=== PATIENT | female | born 1960 | race Caucasian/White ===

== ENCOUNTER 2018-01-19 16:16 | Inpatient (IN) | payer MEDICARE, MEDICAID ==
[~2018-01-19] VITALS: Ht 170.2 cm; Wt 121.8 kg
[~2018-01-19 16:16] MED LIST: ABILIFY; LEVOTHYROID; VENL-67
[2018-01-19] MEDS ORDERED: BUPR100 PO (16:34)
[2018-01-19] MEDS ORDERED: MELO-107 PO (16:34)
[2018-01-19] MEDS ORDERED: LEVO25TA9 PO (16:34)
[2018-01-19] MEDS ORDERED: BUSP10TA23 PO (16:34)
[2018-01-19] MEDS ORDERED: BUPR1FIL3 SL (16:34)
[2018-01-19] MEDS ORDERED: KCL10IV PO (16:34)
[2018-01-19] MEDS ORDERED: MET750 PO (16:34)
[2018-01-19] MEDS ORDERED: OXYB5 PO (16:34)
[2018-01-19] MEDS ORDERED: HYDR50CA10 PO (16:34)
[2018-01-19] MEDS ORDERED: ATOR20TA86 PO (16:34)
[2018-01-19] MEDS ORDERED: LEVO200 PO (16:34)
[2018-01-19] MEDS ORDERED: VENL-67 PO (16:34)
[2018-01-19 17:04] LABS: BASOPHILS % (AUTO) 0.1 % (0.0-2.0); EOSINOPHILS % (AUTO) 0 % (1.0-6.0); HEMATOCRIT 38.6 % (36-46); HEMOGLOBIN 12.8 g/dL (12.0-16.0); LYMPHOCYTES # (AUTO) 1.6 K/uL (1.0-4.8); LYMPHOCYTES % (AUTO) 25.4 % (22.0-44.0); MEAN CORPUSCULAR HEMOGLOBIN 29.1 pg (26.0-34.0); MEAN CORPUSCULAR HGB CONC 33.3 G/dL (31.0-37.0); MEAN CORPUSCULAR VOLUME 88 fL (80-100); MONOCYTES # (AUTO) 0.4 K/uL (0.1-1.0); MONOCYTES % (AUTO) 7.1 % (2.0-9.0); NEUTROPHILS # (AUTO) 4.2 K/uL (1.8-7.7); NEUTROPHILS % (AUTO) 67.4 % (40.0-70.0); PLATELET COUNT (AUTO) 305 K/uL (150-450); RED BLOOD CELL COUNT(AUTO) 4.41 MIL/uL (4.00-5.20); RED CELL DISTRIBUTION WIDTH 13.8 % (11.5-14.5)
[2018-01-19 17:13] LABS: ANION GAP 10 mmol/L (8-16); CALCIUM, TOTAL 9.1 mg/dL (8.8-10.5); CARBON DIOXIDE 27 mmol/L (22-29); CHLORIDE 101 mmol/L (98-107); GLOMERULAR FILTR. RATE CALC 57 mL/min (>60); GLUCOSE,RANDOM 142 mg/dL (70-110); SODIUM SERUM 138 mmol/L (136-145); UREA NITROGEN, BLOOD 22 mg/dL (7-18)
[2018-01-19 17:19] LABS: ALANINE AMINOTRANSFERASE 21 U/L (12-78); ALBUMIN 3.4 g/dL (3.4-5.0); ALKALINE PHOSPHATASE 157 U/L (46-116); ASPARTATE AMINOTRANSFERASE 20 U/L (15-37); BILIRUBIN,TOTAL 0.5 mg/dL (0.1-1.0)
[2018-01-19 18:21] LABS: AMPHET/METH SCREEN,URINE NEGATIVE (NEGATIVE); BARBITURATE SCREEN, URINE NEGATIVE (NEGATIVE); BENZODIAZEPINES SCREEN,URINE NEGATIVE (NEGATIVE); CANNABINOID SCREEN,URINE NEGATIVE (NEGATIVE); COCAINE SCREEN,URINE NEGATIVE (NEGATIVE); METHADONE SCREEN, URINE NEGATIVE (NEGATIVE); OPIATE SCREEN,URINE NEGATIVE (NEGATIVE)
[2018-01-19 18:22] LABS: PHENCYCLIDINE SCREEN,URINE NEGATIVE (NEGATIVE)
[2018-01-19] MEDS: LORazepam 2 MG TABLET PO PRN (18:35)
[2018-01-19 21:17] VITALS: BP 150/70
[2018-01-19] MEDS ORDERED: BENZOCAINE/MENTHOL LOZENGE MM PRN (21:30)
[2018-01-19] MEDS ORDERED: MAG HYDROX/AL HYDROX/SIMETH ES 30 ML SUSPENSION UDCUP PO PRN (21:30)
[2018-01-19] MEDS ORDERED: LOPERAMIDE HCL 2 MG CAPSULE PO PRN (21:30)
[2018-01-19] MEDS ORDERED: CloNIDine HCL 0.1 MG TABLET PO PRN (21:30)
[2018-01-19] MEDS ORDERED: BACITRACIN 28.4 GM OINTMENT TP PRN (21:30)
[2018-01-19] MEDS ORDERED: ACETAMINOPHEN 325 MG TABLET PO PRN (21:30)
[2018-01-19] MEDS ORDERED: ALBUTEROL SULFATE HFA 90 MCG/PUFF 8 GM INHALER IH PRN (21:30)
[2018-01-19] MEDS ORDERED: IBUPROFEN 600 MG TABLET PO PRN (21:30)
[2018-01-19] MEDS ORDERED: PETROLATUM,WHITE 71 GM JELLY TP PRN (21:30)
[2018-01-19] MEDS ORDERED: ONDANSETRON HCL 4 MG TABLET PO PRN (21:30)
[2018-01-19] MEDS ORDERED: MAGNESIUM HYDROXIDE SUSPENSION 30 ML UDCUP PO PRN (21:30)
[2018-01-20 03:00] VITALS: BP 128/64
[2018-01-20] MEDS: LORazepam 2 MG TABLET PO PRN ×3 (03:29→19:00)
[2018-01-20 06:22] LABS: FREE T4 (FREE THYROXINE) 1.32 ng/dL (0.76-1.46); THYROID STIMULATING HORMONE 1.26 uIU/mL (0.36-3.74)
[2018-01-20] MEDS: LEVOTHYROXINE SODIUM 200 MCG TABLET PO SCH (06:29)
[2018-01-20] MEDS: MELOXICAM 7.5 MG TABLET PO SCH (06:30)
[2018-01-20 08:30] VITALS: BP 152/84
[2018-01-20] MEDS: OXYBUTYNIN CHLORIDE 5 MG TABLET PO SCH ×2 (09:00→16:51)
[2018-01-20] MEDS: ATORVASTATIN CALCIUM 20 MG TABLET PO SCH (09:00)
[2018-01-20] MEDS: DOCUSATE SODIUM 100 MG CAPSULE PO SCH (09:00)
[2018-01-20] MEDS: METHOCARBAMOL 750 MG TABLET PO SCH (09:00)
[2018-01-20] MEDS: OMEPRAZOLE 20 MG CAPSULE PO SCH (09:00)
[2018-01-20 21:57] VITALS: BP 146/68
[2018-01-21 03:15] VITALS: BP 123/69
[2018-01-21] MEDS: LORazepam 2 MG TABLET PO PRN ×3 (03:35→20:34)
[2018-01-21 06:53] LABS: HEMOGLOBIN A1C 5.7 % (4.5-6.2)
[2018-01-21] MEDS: MELOXICAM 7.5 MG TABLET PO SCH (07:03)
[2018-01-21] MEDS: LEVOTHYROXINE SODIUM 200 MCG TABLET PO SCH (07:03)
[2018-01-21 07:06] LABS: THYROID STIMULATING HORMONE 1.05 uIU/mL (0.36-3.74)
[2018-01-21 08:49] VITALS: BP 144/82
[2018-01-21] MEDS: ATORVASTATIN CALCIUM 20 MG TABLET PO SCH (09:00)
[2018-01-21] MEDS: DOCUSATE SODIUM 100 MG CAPSULE PO SCH (09:00)
[2018-01-21] MEDS: OXYBUTYNIN CHLORIDE 5 MG TABLET PO SCH ×3 (09:00→17:36)
[2018-01-21] MEDS: OMEPRAZOLE 20 MG CAPSULE PO SCH (09:00)
[2018-01-21] MEDS: METHOCARBAMOL 750 MG TABLET PO SCH (09:35)
[2018-01-21] MEDS: HydrOXYzine PAMOATE 50 MG CAPSULE PO SCH (17:37)
[2018-01-21 20:27] VITALS: BP 140/80
[2018-01-21] MEDS: ZOLPIDEM TARTRATE 10 MG TABLET PO PRN (20:55)
[2018-01-22 02:45] VITALS: BP 152/86
[2018-01-22] MEDS: LEVOTHYROXINE SODIUM 200 MCG TABLET PO SCH (06:59)
[2018-01-22] MEDS: MELOXICAM 7.5 MG TABLET PO SCH (07:08)
[2018-01-22] MEDS: ARIPiprazole 15 MG TABLET PO SCH (08:44)
[2018-01-22] MEDS: BusPIRone HCL 10 MG TABLET PO SCH (08:45)
[2018-01-22] MEDS: METHOCARBAMOL 750 MG TABLET PO SCH (08:45)
[2018-01-22] MEDS: OXYBUTYNIN CHLORIDE 5 MG TABLET PO SCH ×2 (08:45→16:42)
[2018-01-22] MEDS: VENLAFAXINE HCL 150 MG ER CAPSULE PO SCH (08:45)
[2018-01-22] MEDS: ATORVASTATIN CALCIUM 20 MG TABLET PO SCH (08:45)
[2018-01-22] MEDS: BuPROPion HCL XL 150 MG ER TABLET PO SCH (08:46)
[2018-01-22] MEDS: DOCUSATE SODIUM 100 MG CAPSULE PO SCH (09:00)
[2018-01-22] MEDS: NICOTINE 21 MG/24 HOUR PATCH TD SCH (09:00)
[2018-01-22] MEDS: OMEPRAZOLE 20 MG CAPSULE PO SCH (09:00)
[2018-01-22] MEDS: HALOPERIDOL 5 MG TABLET PO PRN ×3 (09:03→21:57)
[2018-01-22] MEDS: HydrOXYzine PAMOATE 50 MG CAPSULE PO SCH ×2 (09:03→16:42)
[2018-01-22 09:57] VITALS: BP 138/75
[2018-01-22 17:07] VITALS: BP 106/53
[2018-01-22 17:50] VITALS: BP 127/66
[2018-01-22 18:53] VITALS: BP 120/62
[2018-01-23 05:53] VITALS: BP 142/83
[2018-01-23] MEDS: HALOPERIDOL 5 MG TABLET PO PRN (06:57)
[2018-01-23] MEDS: LEVOTHYROXINE SODIUM 200 MCG TABLET PO SCH (07:05)
[2018-01-23] MEDS: MELOXICAM 7.5 MG TABLET PO SCH (07:11)
[2018-01-23 07:30] VITALS: BP 145/79
[2018-01-23 08:30] VITALS: BP 141/80
[2018-01-23] MEDS: OMEPRAZOLE 20 MG CAPSULE PO SCH (09:00)
[2018-01-23] MEDS: NICOTINE 21 MG/24 HOUR PATCH TD SCH (09:00)
[2018-01-23] MEDS: DOCUSATE SODIUM 100 MG CAPSULE PO SCH (09:09)
[2018-01-23] MEDS: VENLAFAXINE HCL 150 MG ER CAPSULE PO SCH (09:09)
[2018-01-23] MEDS: BuPROPion HCL XL 150 MG ER TABLET PO SCH (09:09)
[2018-01-23] MEDS: OXYBUTYNIN CHLORIDE 5 MG TABLET PO SCH ×2 (09:09→16:56)
[2018-01-23] MEDS: ATORVASTATIN CALCIUM 20 MG TABLET PO SCH (09:09)
[2018-01-23] MEDS: BusPIRone HCL 10 MG TABLET PO SCH (09:09)
[2018-01-23] MEDS: METHOCARBAMOL 750 MG TABLET PO SCH (09:10)
[2018-01-23] MEDS: ARIPiprazole 15 MG TABLET PO SCH (09:10)
[2018-01-23] MEDS: HydrOXYzine PAMOATE 50 MG CAPSULE PO SCH ×2 (09:15→16:57)
[2018-01-23] MEDS: LORazepam 2 MG TABLET PO PRN (19:44)
[2018-01-23 21:47] VITALS: BP 110/61
[2018-01-24 02:30] VITALS: BP 151/88
[2018-01-24] MEDS: LEVOTHYROXINE SODIUM 200 MCG TABLET PO SCH (07:05)
[2018-01-24] MEDS: MELOXICAM 7.5 MG TABLET PO SCH (07:20)
[2018-01-24] MEDS: ATORVASTATIN CALCIUM 20 MG TABLET PO SCH (08:17)
[2018-01-24] MEDS: OMEPRAZOLE 20 MG CAPSULE PO SCH (08:17)
[2018-01-24] MEDS: HydrOXYzine PAMOATE 50 MG CAPSULE PO SCH ×2 (08:17→16:17)
[2018-01-24] MEDS: OXYBUTYNIN CHLORIDE 5 MG TABLET PO SCH ×2 (08:17→16:16)
[2018-01-24] MEDS: METHOCARBAMOL 750 MG TABLET PO SCH (08:17)
[2018-01-24] MEDS: VENLAFAXINE HCL 150 MG ER CAPSULE PO SCH (08:17)
[2018-01-24] MEDS: DOCUSATE SODIUM 100 MG CAPSULE PO SCH (08:17)
[2018-01-24] MEDS: BuPROPion HCL XL 150 MG ER TABLET PO SCH (08:17)
[2018-01-24] MEDS: ARIPiprazole 15 MG TABLET PO SCH (08:17)
[2018-01-24] MEDS: BusPIRone HCL 10 MG TABLET PO SCH (08:17)
[2018-01-24] MEDS: NICOTINE 21 MG/24 HOUR PATCH TD SCH (08:19)
[2018-01-24 09:04] VITALS: BP 136/70
[2018-01-24] MEDS: LORazepam 2 MG TABLET PO PRN ×2 (09:48→19:45)
[2018-01-24 17:33] VITALS: BP 149/78
[2018-01-25 00:05] VITALS: BP 151/86
[2018-01-25] MEDS: LEVOTHYROXINE SODIUM 200 MCG TABLET PO SCH (07:01)
[2018-01-25] MEDS: MELOXICAM 7.5 MG TABLET PO SCH (07:19)
[2018-01-25] MEDS: ATORVASTATIN CALCIUM 20 MG TABLET PO SCH (08:10)
[2018-01-25] MEDS: OXYBUTYNIN CHLORIDE 5 MG TABLET PO SCH ×2 (08:10→16:16)
[2018-01-25] MEDS: VENLAFAXINE HCL 150 MG ER CAPSULE PO SCH (08:10)
[2018-01-25] MEDS: BuPROPion HCL XL 150 MG ER TABLET PO SCH (08:10)
[2018-01-25] MEDS: NICOTINE 21 MG/24 HOUR PATCH TD SCH (08:10)
[2018-01-25] MEDS: DOCUSATE SODIUM 100 MG CAPSULE PO SCH (08:10)
[2018-01-25] MEDS: METHOCARBAMOL 750 MG TABLET PO SCH ×2 (08:10→18:37)
[2018-01-25] MEDS: OMEPRAZOLE 20 MG CAPSULE PO SCH (08:10)
[2018-01-25] MEDS: ARIPiprazole 15 MG TABLET PO SCH (08:10)
[2018-01-25] MEDS: BusPIRone HCL 10 MG TABLET PO SCH (08:10)
[2018-01-25] MEDS: HydrOXYzine PAMOATE 50 MG CAPSULE PO SCH ×2 (08:17→16:17)
[2018-01-25] MEDS: LORazepam 2 MG TABLET PO PRN ×2 (10:02→22:15)
[2018-01-25 10:19] VITALS: BP 131/77
[2018-01-25 19:05] VITALS: BP 124/61
[2018-01-26 00:34] VITALS: BP 122/88
[2018-01-26] MEDS: ZOLPIDEM TARTRATE 10 MG TABLET PO PRN (00:37)
[2018-01-26] MEDS ORDERED: ARIP15TA2 PO (01:31)
[2018-01-26] MEDS: MELOXICAM 7.5 MG TABLET PO SCH (08:25)
[2018-01-26] MEDS: BuPROPion HCL XL 150 MG ER TABLET PO SCH (08:26)
[2018-01-26] MEDS: ATORVASTATIN CALCIUM 20 MG TABLET PO SCH (08:26)
[2018-01-26] MEDS: OMEPRAZOLE 20 MG CAPSULE PO SCH (08:26)
[2018-01-26] MEDS: BusPIRone HCL 10 MG TABLET PO SCH (08:26)
[2018-01-26] MEDS: DOCUSATE SODIUM 100 MG CAPSULE PO SCH (08:26)
[2018-01-26] MEDS: OXYBUTYNIN CHLORIDE 5 MG TABLET PO SCH (08:26)
[2018-01-26] MEDS: ARIPiprazole 15 MG TABLET PO SCH (08:26)
[2018-01-26] MEDS: METHOCARBAMOL 750 MG TABLET PO SCH (08:26)
[2018-01-26] MEDS: VENLAFAXINE HCL 150 MG ER CAPSULE PO SCH (08:26)
[2018-01-26] MEDS: HydrOXYzine PAMOATE 50 MG CAPSULE PO SCH (08:37)
[2018-01-26] MEDS: NICOTINE 21 MG/24 HOUR PATCH TD SCH (08:38)
[2018-01-26] MEDS ORDERED: DSS100 PO (08:55)
[2018-01-26] MEDS ORDERED: OMEP20 PO (09:06)
[2018-01-26 09:52] VITALS: BP 145/71
== END 2018-01-26 11:00 | disposition home or self-care (01) | DRG 885 ==
LOC: EMS 16:18 → 3EX 19:51
PROVIDERS: ADMIT Psychiatry & Neurology Psychiatry; ATTEND Psychiatry & Neurology Psychiatry
DX: F25.9 Schizoaffective disorder, unspecified (principal); R45.851 Suicidal ideations; F19.20 Other psychoactive substance dependence, uncomplicated; N32.81 Overactive bladder; F41.9 Anxiety disorder, unspecified; F32.9 Major depressive disorder, single episode, unspecified; E78.5 Hyperlipidemia, unspecified; E03.9 Hypothyroidism, unspecified; M19.90 Unspecified osteoarthritis, unspecified site; Z79.899 Other long term (current) drug therapy; Z98.84 Bariatric surgery status; Z79.890 Hormone replacement therapy; Z90.49 Acquired absence of other specified parts of digestive tract; Z98.891 History of uterine scar from previous surgery; Z56.0 Unemployment, unspecified
CPT/HCPCS: 82306; 83036; 84439; 84443; 99285; G0480